=== PATIENT | female | born 1945 | race Caucasian/White ===

== ENCOUNTER 2022-06-22 15:15 | Outpatient (RCR) | payer MEDICARE, OTHER, SELFPAY | END 2022-11-11 23:59 | disposition home or self-care (01) | PROVIDERS: PCP Family Medicine; Visit Provider Family Medicine | DX: M25.561 Pain in right knee (principal); M62.81 Muscle weakness (generalized); M17.11 Unilateral primary osteoarthritis, right knee; M21.061 Valgus deformity, not elsewhere classified, right knee; Z51.89 Encounter for other specified aftercare | CPT/HCPCS: 97110; 97162 ==

== ENCOUNTER 2023-08-18 09:48 | Outpatient (CLI) | payer MEDICARE, OTHER, SELFPAY | END 2023-08-18 09:49 | disposition home or self-care (01) | LOC: NFLDREF 08-26 07:23 | PROVIDERS: PCP Family Medicine; Referring Provider Family Medicine; Visit Provider Physician Assistant | DX: N39.0 Urinary tract infection, site not specified (principal) | CPT/HCPCS: 87086; 87186 ==

== ENCOUNTER 2024-10-02 06:02 | Day surgery (SDC) | payer MEDICARE, OTHER, SELFPAY ==
[2024-10-02] VITALS (25 sets, daily range): BP systolic 90–167; BP diastolic 53–93; PULSE 55–79; RESP 14–20; TEMP 34.6–36.8; O2SAT 88–96; BMI 34.1
[2024-10-02] MEDS: CELECOXIB 200 MG CAPSULE PO (06:30)
[2024-10-02] MEDS: ACETAMINOPHEN 500 MG TABLET 1000 MG PO ×3 (06:30→19:18)
[2024-10-02] MEDS: OXYCODONE (CR) 10 MG TAB.ER.12H PO (06:30)
[2024-10-02] MEDS: LACTATED RINGERS 1000 ML 1,000 ML 100 ML IV ×2 (06:45→10:26)
[2024-10-02] MEDS: SODIUM CHLORIDE 0.9 % (FLUSH) 10 ML SYRINGE IVF (06:45)
[2024-10-02] MEDS: MIDAZOLAM HCL 1 MG/ML inj IVP (06:59)
[2024-10-02] MEDS: fentaNYL 100 MCG/2 ML inj IVP (06:59)
--- NOTE | 2024-10-02 07:03 | P.NB_ITS ---
Nerve Block Nerve Block Time Seen by Provider: 07:02 Date Seen: 10/02/24 Type of block requested by surgeon for post-operative analgesia: adductor canal Side: right Time out performed: Yes Verification of patient name: Yes Verification of date of : Yes Site marking: site marked Name of person performing procedure: Raman Continuous monitoring Was continuous monitoring of O2 sat, B/P, dynamite packing machine operator, recorded every 15 minutes?: Yes Procedure Checklist: sterile prep, needles and gloves Ultrasound guided. Images saved: Yes Medications given in 5ml increments after negative aspiration: Marcaine %: 0.25 mL: 15 Needle gauge: 20 Precedex (mcg): 25 Patient tolerated procedure well: Yes Block Charges Block Charge (with Pro Fee): Femoral Nerve Use of Ultrasound Machine for Block: Yes- US Guidance/pain block
--- NOTE | 2024-10-02 07:04 | P.NB_ITS ---
Nerve Block Nerve Block Time Seen by Provider: 07:02 Date Seen: 10/02/24 Type of block requested by surgeon for post-operative analgesia: geniculars Side: right Time out performed: Yes Verification of patient name: Yes Verification of date of : Yes Site marking: site marked Name of person performing procedure: Raman Continuous monitoring Was continuous monitoring of O2 sat, B/P, air sampling and monitoring, recorded every 15 minutes?: Yes Procedure Checklist: sterile prep, needles and gloves Ultrasound guided. Images saved: Yes Medications given in 5ml increments after negative aspiration: Marcaine %: 0.25 mL: 9 Needle gauge: 25 Patient tolerated procedure well: Yes Block Charges Block Charge (with Pro Fee): Genicular Nerve Block
--- NOTE | 2024-10-02 07:04 | P.ANES_ITS ---
Anesthesia Charges Start Date/Time Anesthesia Start Date: 10/02/24 Anesthesia Start Time: 07:20 Stop Date/Time Anesthesia Stop Date: 10/02/24 Anesthesia Stop Time: 10:02 Summary Extremes of Age - Over 70 or under 1: MDA Coding CPT Codes CPT Codes: ANESTH KNEE ARTHROPLASTY - 73062 ([id number]) P2 - PATIENT W/MILD SYST DISEASE, QK - IT APPLICATION DEVELOPMENT MANAGER 2-4 CNCRNT ANES PROC, QX - SEAMLESS TUBE MILL OPERATOR SVC W/ MD MED DIRECTION Additional Codes: Summary - Extremes of Age - Over 70 or under 1: MDA ([id number])
--- NOTE | 2024-10-02 07:04 | SUR.PREOP ---
TIME?OUT:?0658 PT/RN/MDA?VERIFICATION?OF?SURGICAL?SITE,?PROCEDURE,?AND?CONSENT OBTAINED?PRIOR?TO?INVASIVE?PROCEDURE.
--- NOTE | 2024-10-02 07:04 | W.ANESCHARGE ---
Anesthesia Charges Start Date/Time Anesthesia Start Date: 10/02/24 Anesthesia Start Time: 07:20 Stop Date/Time Anesthesia Stop Date: 10/02/24 Anesthesia Stop Time: 10:02 Summary Extremes of Age - Over 70 or under 1: MDA Coding CPT Codes CPT Codes: ANESTH KNEE ARTHROPLASTY - 59910 ([id number]) P2 - PATIENT W/MILD SYST DISEASE, QK - DIRECTOR OF CASEWORK SERVICES 2-4 CNCRNT ANES PROC, QX - ISSUER SVC W/ MD MED DIRECTION Additional Codes: Summary - Extremes of Age - Over 70 or under 1: MDA ([id number])
[2024-10-02] MEDS: CEFAZOLIN 1 GM inj IVP (07:25)
[2024-10-02] MEDS: TRANEXAMIC ACID 100 MG/ML INJ 1000 MG IV (07:30)
--- NOTE | 2024-10-02 09:03 | CRLHL7_ITS ---
For Patients: As a result of the Cures Act, medical imaging exams and procedure reports are released immediately into your electronic medical record. You may view this report before your referring provider. If you have questions, please contact your health care provider. Indication: post op TKA Technique: Two views right knee Findings/Impression: Hardware from a right total knee arthroplasty is in satisfactory position. Bone alignment is normal. No sign of acute fracture. Postop changes are within normal limits. Dictated by Josh Banks MD @ 10/02/2024 10:43:47 AM (Electronically Signed)
--- NOTE | 2024-10-02 09:04 | P.ORPRC_ITS ---
Procedure Note Date of procedure: 10/02/24 Procedure: PREOPERATIVE DIAGNOSIS: Right knee osteoarthritis POSTOPERATIVE DIAGNOSIS: Right knee osteoarthritis NAME OF OPERATION: Right total knee arthroplasty SURGEON: Carlos Denson MD DIRECTOR STATISTICAL PROGRAMMING: Aurea Moreno PA-C ANESTHESIA: Spinal ESTIMATED BLOOD LOSS: 0 mL COMPLICATIONS: None SPECIMENS: None DRAINS: None PREOPERATIVE ANTIBIOTICS: Ancef 2 grams, antibiotic impregnated cement IMPLANTS: 1. J[employer]J Attune revision CRS # 7 posterior stabilized femur, 14 mm x 50 mm cemented stem 2. Revision CRS # 7 fixed-bearing tibia, 14 mm x 50 mm cemented stem 3. # 7 posterior stabilized, 6 mm fixed-bearing, constrained polyethylene 4. 38 patella INDICATIONS: The patient is a 78-year-old with a longstanding history of severe, unrelenting right knee pain secondary to end-stage (grade IV) right knee osteoarthritis. Despite appropriate nonoperative management, including activity modification, anti-inflammatories, [id number] pain medication, bracing, physical therapy, and injections they continue to have pain and disability. Operative intervention was offered. The risks, benefits and expected outcomes were discussed in detail. These included but were not limited to: Infection, bleeding, injury to blood vessel or nerve, venous thromboembolism. All questions were answered to their satisfaction. Use of an licensed investment sales assistant was necessary throughout the case for patient positioning and safety, soft tissue retraction, and closure. A modifier 22 should be added to this case. Given the patient's valgus deformity and instability stemmed and constrained components were used. This added time and cost to complete the case. PROCEDURE: Spinal anesthesia was administered. The patient was placed supine on the operating table. The licensed investment sales assistant made sure the patient was positioned appropriately. The lower extremity was prepped and draped in the usual sterile fashion. The limb was exsanguinated with the Caelb bandage. The pneumatic tourniquet was inflated to 225 mmHg. A standard anterior incision was made with the knee in flexion. Subcutaneous dissection was sharply taken through fascial layer #1. Full-thickness medial and lateral flaps were elevated. The licensed investment sales assistant retracted the soft tissues and p rotected them throughout the case. A standard subvastus approach was made. The patella was subluxed. The infrapatellar fat pad was debrided. The menisci and cruciate ligaments were sharply d?brided. Marginal osteophytes were d?brided with the rongeur. The drill was used to penetrate the femoral canal. The canal was aspirated and irrigated with pulse lavage. The intramedullary femoral guide was placed for a 5-degree valgus cut, removing 12 mm off the distal femur. The saw was used to make the cut. Whitesides line and the trans epicondylar axis were marked. The femoral sizing guide was pinned onto the distal femur. Five degrees of external rotation nicely parallels the transepicondylar axis. Pins were placed for posterior referencing. The four-in-one cutting guide was pinned onto the distal femur. The anterior, posterior, and chamfer cuts were made. The licensed investment sales assistant protected the collateral ligaments. The revision trial was placed. The box cuts were made. The drill was used x2. The stemmed, boxed trial was placed and was an excellent fit. Attention was then turned to the proximal tibia. The intramedullary tibial guide was placed for a neutral varus/valgus cut with 3 degrees of posterior slope, removing 2 mm based off the medial tibial surface. The licensed investment sales assistant protected the collateral ligaments and the neurovascular bundle. The saw was used to make the cut. Trial components were placed. The knee was nicely balanced in both flexion and extension. The trial components were removed. The tray was placed in appropriate rotation, parallel to our tibial cutting pins. It was pinned by the licensed investment sales assistant and the drill x2 was used. The stemmed tibial trial was placed. The punch was used. The tray was removed. The punch was used again. Attention was then turned to the patella. [place] [employer] patellar thickness was 24.5 mm. The lobster claw resection guide was used with the 9.5 mm mimi. The saw was used to make the cut. Drill holes were made by the licensed investment sales assistant. The trial was placed and was an excellent fit. Cancellous surfaces were irrigated with pulse lavage and thoroughly dried by the licensed investment sales assistant. We cemented the tibial component, then the femoral component. We impacted the 6 mm polyethylene onto the tibial tray. The knee was brought into full extension. We then cemented the patellar component. Excessive cement was removed. The cement was allowed to harden. The knee was taken through a range of motion and was found to be nicely balanced in both flexion and extension. The patella tracks centrally. The licensed investment sales assistant did a three minute dilute Betadine solution soak. The licensed investment sales assistant irrigated the wound with 3 liters of normal saline via pulse lavage. The licensed investment sales assistant reapproximated the extensor mechanism with #1 Vicryl in an interrupted abylbe-qe-darur fashion. The licensed investment sales assistant then ran the extensor mechanism with a #1 PDO Stratafix. The licensed investment sales assistant closed the subcutaneous tissues with a 3-0 Stratafix and the skin with a running 3-0 Stratafix in a subcuticular fashion. Glue was used to seal the skin. The licensed investment sales assistant placed a dry dressing. Sponge and needle counts were correct x2. The patient tolerated the procedure well. There were no apparent complications. They were carefully transferred to the hospital bed and taken to the postanesthesia care unit in satisfactory condition. PLAN: The patient will be mobilized with physical therapy. Aspirin will be used for DVT prophylaxis. They will be discharged to home once medically appropriate.
--- NOTE | 2024-10-02 10:03 | P.ANES_ITS ---
Anesthesia Charges Start Date/Time Anesthesia Start Date: 10/02/24 Anesthesia Start Time: 07:20 Stop Date/Time Anesthesia Stop Date: 10/02/24 Anesthesia Stop Time: 10:02 Coding CPT Codes CPT Codes: ANESTH KNEE ARTHROPLASTY - 88704 ([id number]) P2 - PATIENT W/MILD SYST DISEASE, QK - DAY CARE ATTENDANT 2-4 CNCRNT ANES PROC, QX - RAILCAR CARPENTER SVC W/ MD MED DIRECTION
--- NOTE | 2024-10-02 10:03 | W.ANESCHARGE ---
Anesthesia Charges Start Date/Time Anesthesia Start Date: 10/02/24 Anesthesia Start Time: 07:20 Stop Date/Time Anesthesia Stop Date: 10/02/24 Anesthesia Stop Time: 10:02 Coding CPT Codes CPT Codes: ANESTH KNEE ARTHROPLASTY - 65486 ([id number]) P2 - PATIENT W/MILD SYST DISEASE, QK - DRYWALL STRIPPER 2-4 CNCRNT ANES PROC, QX - PARTS DELIVERY DRIVER SVC W/ MD MED DIRECTION
--- NOTE | 2024-10-02 10:38 | SUR.PHASEI ---
Patient meets discharge criteria from PACU.
[2024-10-02] MEDS: HYDROmorphone 0.5 mg/0.5 ml inj IVP (13:53)
[2024-10-02] MEDS: CEFAZOLIN 2 GM in 0.9 % SODIUM CHLORIDE Mini-bag 100 ML IVPB ×2 (13:53→21:19)
--- NOTE | 2024-10-02 15:23 | PC.NURSE ---
End of Shift: Patient pleasant and cooperative. VSS, afebrile. SpO2 maintained above 90% on 1L NC. Dressing to right knee C/D/I. Tolerating ice chips and crackers, denies nausea. Patient reported pain on right knee managed with PRN medication, see MAR. Up in the chair, call light within reach.
--- NOTE | 2024-10-02 16:31 | PM.IMCN1 ---
Date of Consult Patient: Gordon Patient Consult date: 10/02/24 Requesting Physician: Orthopedics Primary Care Provider: Makenna Keita MD Consult Narrative Reason for consult: HTN Narrative: Lor Coates is a 78 year old female with a h/o HTN, dysthymic disorder, and microcytic anemia who underwent an elective right total knee arthroplasty today by Dr. Denson. She is feeling well after surgery. She notes she is a nervous person and was really worried all day before the surgery, but since it all has gone so well and the surgery is now done, she feels good and happy. She also has no pain at this time, noting that she got some acetaminophen a while ago, which is working. We discussed box breathing and meditation as techniques she could use for anxiety. Review of Systems Status of ROS: Reports: 6 or more systems reviewed and unremarkable except as noted in History and below [facility] Medical History (Updated 10/02/24 @ 16:42 by Meghann De Dios MD) Anxiety ?F41.9 - Anxiety disorder, unspecified (ICD-10) Chronic pain of right knee ?M25.561 - Pain in right knee (ICD-10) ?G89.29 - Other chronic pain (ICD-10) Impaired fasting glucose ?R73.01 - Impaired fasting glucose (ICD-10) Hyperlipidemia ?E78.5 - Hyperlipidemia, unspecified (ICD-10) Depression ?F32.A - Depression, unspecified (ICD-10) Viral upper respiratory infection ?J06.9 - Acute upper respiratory infection, unspecified (ICD-10) Hypercholesterolemia ?E78.00 - Pure hypercholesterolemia, unspecified (ICD-10) Prediabetes ?R73.03 - Prediabetes (ICD-10) Right knee pain ?M25.561 - Pain in right knee (ICD-10) Dysthymic disorder ?F34.1 - Dysthymic disorder (ICD-10) Osteoarthritis ?M19.90 - Unspecified osteoarthritis, unspecified site (ICD-10) Microcytic anemia ?D50.9 - Iron deficiency anemia, unspecified (ICD-10) Colon polyp ?K63.5 - Polyp of colon (ICD-10) Vitamin D deficiency ?E55.9 - Vitamin D deficiency, unspecified (ICD-10) Unspecified essential hypertension ?I10 - Essential (primary) hypertension (ICD-10) Surgical History (Updated 10/02/24 @ 16:41 by Meghann De Dios MD) Status post total right knee replacement ?Z96.651 - Presence of right artificial knee joint (ICD-10) History of arthroplasty of right knee (10/02/24) ?Z96.651 - Presence of right artificial knee joint (ICD-10) H/O removal of cyst ?Z98.890 - Other specified postprocedural states (ICD-10) H/O dilation and curettage (1995) ?Z98.890 - Other specified postprocedural states (ICD-10) Social History (Updated 10/02/24 @ 16:38 by Meghann De Dios MD) Narrative: Denies tobacco or alcohol use. What is your current living situation?: I presently have a place to live Problems where you live: no known problems In the past 12 months, utilities in danger of being shut off: no In past 12 months, lack of transportation kept you from medical appts, meetings, work, or getting things needed for daily living: no In the past 12 mos, have been you worried that your food would run out before you had money to buy more?: never true In the past 12 mos, the food you bought just didn't last and you didn't have money to buy more?: never true Highest level of school completed/degree received: high school graduate Smoking Status: Never smoker Do you use any of these nicotine containing products: None Second hand tobacco smoke exposure: No How often do you have a drink containing alcohol: never How often do you have six or more drinks on one occasion: Never AUDIT-C Alcohol total score: 0 Non-prescribed substance use: denies use Caffeine: Yes How often does anyone, including family, friends and others, physically hurt you: never How often does anyone, including family, friends and others, insult or talk down to you: never How often does anyone, including family, friends and others, threaten you with harm: never How often does anyone, including family, friends and others, scream or curse at you: never service: No Meds Home Medications and Allergies Home Medications ?Medication ?Instructions ?Recorded ?Confirmed ?Type ferrous sulfate 325 mg (65 mg 325 mg PO DAILY 08/18/23 10/02/24 History iron) tablet,delayed release hydrochlorothiazide 25 mg tablet 25 mg PO DAILY 08/18/23 10/02/24 History paroxetine HCl 40 mg tablet 40 mg PO DAILY 08/18/23 10/02/24 History cholecalciferol (vitamin D3) 25 1,000 unit PO DAILY 09/28/24 10/02/24 History mcg (1,000 unit) capsule acetaminophen 500 mg tablet 500 mg PO Q6H PRN 10/02/24 10/02/24 History (Acetaminophen Extra Strength) aspirin 81 mg chewable tablet 81 mg PO BID for DVT prophylaxis 10/02/24 Rx (Aspirin Childrens) 30 days #60 tabs cyanocobalamin (vitamin B-12) 1,000 mcg PO DAILY 10/02/24 10/02/24 History 1,000 mcg tablet metformin 500 mg tablet,extended 500 mg PO DAILY 10/02/24 10/02/24 History release 24 hr oxycodone 5 mg tablet 2.5 - 5 mg (0.5 - 1 x 5 mg) PO 10/02/24 Rx Q4-6H PRN Pain #42 tabs rosuvastatin 10 mg tablet 10 mg PO HS 10/02/24 10/02/24 History sennosides 8.6 mg tablet (Senna 17.2 mg (2 x 8.6 mg) PO BID PRN 10/02/24 Rx Lax) constipation #100 tabs Allergies Allergy/AdvReac Type Severity Reaction Status Date / Time No Known Drug Allergies Allergy Verified 10/02/24 06:15 Exam Narrative: Exam Narrative: General: No acute distress. Awake alert oriented x3. Sitting comfortably in the bedside chair. HEENT: Normocephalic atraumatic, pupils equally round and reactive to light and accommodation. Oropharynx clear. Mucous membranes are moist. No cervical lymphadenopathy, thyromegaly or carotid bruits. No JVD. Cardiovascular: Regular rate and rhythm. No murmurs, gallops, or rubs. Chest: No increased work of breathing. Clear to auscultation bilaterally. No crackles or wheezes. Abdomen: Bowel sounds present. Soft, nondistended, nontender. No hepatosplenomegaly or masses. Extremities: Right knee bandage is clean, dry, and intact. No edema, no cyanosis or clubbing. Skin: No jaundice, no pallor, no rashes on visible skin. Const: Vital Signs, click to edit/add: Vital Signs - 24 hr 10/02/24 06:47 10/02/24 06:59 10/02/24 07:05 Temperature 97.4 F L Pulse Rate 65 65 57 L Respiratory Rate 16 16 16 Blood Pressure 164/92 H 167/88 H 135/79 Pulse Oximetry 95 96 95 Oxygen Delivery Me thod Room Air Nasal Cannula Nasal Cannula Oxygen Flow Rate 2 2 10/02/24 09:57 10/02/24 10:05 10/02/24 10:10 Temperature 97.3 F L Pulse Rate 59 L 59 L 58 L Respiratory Rate 16 14 14 Blood Pressure 157/84 H 128/65 115/93 H Pulse Oximetry 95 94 94 Oxygen Delivery Me thod Room Air Room Air Room Air Oxygen Flow Rate 10/02/24 10:15 10/02/24 10:20 10/02/24 10:25 Temperature Pulse Rate 58 L 57 L 57 L Respiratory Rate 14 14 14 Blood Pressure 118/78 133/63 132/60 Pulse Oximetry 93 95 95 Oxygen Delivery Me thod Room Air Room Air Oxygen Flow Rate 10/02/24 10:30 10/02/24 10:36 10/02/24 10:45 Temperature 97.3 F L 96.4 F L Pulse Rate 57 L 58 L 57 L Respiratory Rate 14 14 14 Blood Pressure 109/83 116/67 120/75 Pulse Oximetry 94 94 90 Oxygen Delivery Me thod Room Air Room Air Oxygen Flow Rate 10/02/24 10:45 10/02/24 11:00 10/02/24 11:15 Temperature 96.4 F L 96.5 F L 96.6 F L Pulse Rate 57 L 56 L 57 L Respiratory Rate 14 14 14 Blood Pressure 120/75 117/70 104/58 L Pulse Oximetry 90 92 93 Oxygen Delivery Me thod Room Air Nasal Cannula Nasal Cannula Oxygen Flow Rate 1 1 10/02/24 11:30 10/02/24 11:45 10/02/24 12:15 Temperature 96.6 F L 96.8 F L 97.1 F L Pulse Rate 55 L 57 L 57 L Respiratory Rate 14 14 14 Blood Pressure 102/56 L 113/59 L 106/56 L Pulse Oximetry 92 94 93 Oxygen Delivery Me thod Room Air Nasal Cannula Nasal Cannula Oxygen Flow Rate 1 1 10/02/24 12:45 10/02/24 14:00 10/02/24 15:00 Temperature 97.1 F L 97.5 F L 98.1 F Pulse Rate 60 66 63 Respiratory Rate 14 16 16 Blood Pressure 107/58 L 94/71 100/56 L Pulse Oximetry 94 90 93 Oxygen Delivery Me thod Nasal Cannula Nasal Cannula Nasal Cannula Oxygen Flow Rate 1 1 1 Assessment and Plan Assessment and plan (1) Status post total right knee replacement: Problem comment: - 10/02/24 Jarett - Routine post op cares - VTE prophylaxis with SCDs and aspirin 81 mg p.o. b.i.d. Status: Acute (2) Osteoarthritis of right knee: Status: Chronic (3) Anxiety: Problem comment: - Continue paxil - Meditation and box breathing as needed Status: Chronic (4) Unspecified essential hypertension: Problem comment: - BP borderline low postoperatively, asymptomatic, hold hydrochlorothiazide tomorrow morning Status: Chronic (5) Hyperlipidemia: Problem comment: Continue rosuvastatin Status: Chronic (6) Prediabetes: Problem comment: - restart metformin the morning Status: Chronic
[2024-10-02] MEDS: SENNOSIDES 1 TAB TABLET 2 TAB PO (21:19)
[2024-10-02] MEDS: ASPIRIN 81 MG TABLET EC PO (21:19)
[2024-10-02] MEDS: ROSUVASTATIN CALCIUM 10 MG TABLET PO (21:19)
[2024-10-02] MEDS: OXYCODONE 5 MG TABLET PO ×2 (21:23→23:17)
--- NOTE | 2024-10-02 22:51 | PC.NURSE ---
Arrived to patient?s room for initial assessment to find the patient sitting in her chair and in good spirits. Vitally she was still on post-op routine for three more hours and was initially hypotensive. This avril to an acceptable level for hour six. All benchmarks for post-op met. However she has not urinated this shift and has not expressed a need to do so. Further evaluation of fluid intake v retention needed. No discomfort in the abdomen. Ice pack kept in place over her right knee and replaced with new packs periodically. Surgical site covered with dry and intact dressing. Some slight swelling of the knee area but the skin is not tight or taught. Right pedal pulse, below the surgical site, is weak compared to left pulse. Patient educated on need to keep leg elevated and straight while seated but I would find her non-compliant with this on my many visits to her room, although accepting of us position them again in the proper position. I moved her once on my shift from her chair to the bed using a walker and belt. Uneasy on her feet. Pain of the right knee after this transfer. No knee immobilizer found in room. Verified with preceptor that none is needed. At end of shift the patient appeared to be in a good state of health and on her way to a successful and safe discharge from the hospital to home. ?
[2024-10-03] MEDS: ACETAMINOPHEN 500 MG TABLET 1000 MG PO ×2 (00:01→07:09)
[2024-10-03 03:20] VITALS: BP 108/62; PULSE 68; RESP 18; TEMP 36.7; O2SAT 95
--- NOTE | 2024-10-03 06:55 | PC.NURSE ---
Pt is alert and oriented x3. Afebrile. Pt reports 3/10 pain in right knee, pain managed with ice pack, PRN and scheduled medications. Pt?s right knee dressing is CDI. Pt is up SBA with walker and gait belt voiding, and tolerating a regular diet. Pt had one small BM. ?
[2024-10-03 07:00] VITALS: BP 102/58; PULSE 70; RESP 14; TEMP 36.6; O2SAT 92
[2024-10-03] MEDS: OXYCODONE 5 MG TABLET PO ×2 (07:10→09:31)
--- NOTE | 2024-10-03 08:07 | PM.ORPN ---
Subjective Subjective Time Seen by Provider: 07:45 Date Seen: 10/03/24 Principal diagnosis: Status post right knee replacement Interval history: Erika is comfortable. She will discharge today. Ortho Exam Narrative Exam Narrative: Alert and oriented x3. Patient is in no acute distress. Converses without labored breathing. Hearing is grossly intact. Ambulates with a walker. Examination of the right knee shows the dressing is intact. There is no erythema or warmth or sign of infection. Mild hematoma anterior knee. Mild edema. Bilateral calves are soft and nontender. She is able to straight leg raise. CMS is intact right lower extremity. Const Vital Signs, click to edit/add: Vital Signs - 24 hr 10/02/24 09:57 10/02/24 10:05 10/02/24 10:10 Temperature 97.3 F L Pulse Rate 59 L 59 L 58 L Pulse Rate [Right Pulse Oximeter] Respiratory Rate 16 14 14 Blood Pressure 157/84 H 128/65 115/93 H Blood Pressure [Left Arm] Pulse Oximetry 95 94 94 Oxygen Delivery Method Room Air Room Air Room Air Oxygen Flow Rate 10/02/24 10:15 10/02/24 10:20 10/02/24 10:25 Temperature Pulse Rate 58 L 57 L 57 L Pulse Rate [Right Pulse Oximeter] Respiratory Rate 14 14 14 Blood Pressure 118/78 133/63 132/60 Blood Pressure [Left Arm] Pulse Oximetry 93 95 95 Oxygen Delivery Method Room Air Room Air Oxygen Flow Rate 10/02/24 10:30 10/02/24 10:36 10/02/24 10:45 Temperature 97.3 F L 96.4 F L Pulse Rate 57 L 58 L 57 L Pulse Rate [Right Pulse Oximeter] Respiratory Rate 14 14 14 Blood Pressure 109/83 116/67 120/75 Blood Pressure [Left Arm] Pulse Oximetry 94 94 90 Oxygen Delivery Method Room Air Room Air Oxygen Flow Rate 10/02/24 10:45 10/02/24 11:00 10/02/24 11:15 Temperature 96.4 F L 96.5 F L 96.6 F L Pulse Rate 57 L 56 L 57 L Pulse Rate [Right Pulse Oximeter] Respiratory Rate 14 14 14 Blood Pressure 120/75 117/70 104/58 L Blood Pressure [Left Arm] Pulse Oximetry 90 92 93 Oxygen Delivery Method Room Air Nasal Cannula Nasal Cannula Oxygen Flow Rate 1 1 10/02/24 11:30 10/02/24 11:45 10/02/24 12:15 Temperature 96.6 F L 96.8 F L 97.1 F L Pulse Rate 55 L 57 L 57 L Pulse Rate [Right Pulse Oximeter] Respiratory Rate 14 14 14 Blood Pressure 102/56 L 113/59 L 106/56 L Blood Pressure [Left Arm] Pulse Oximetry 92 94 93 Oxygen Delivery Method Room Air Nasal Cannula Nasal Cannula Oxygen Flow Rate 1 1 10/02/24 12:45 10/02/24 14:00 10/02/24 15:00 Temperature 97.1 F L 97.5 F L 98.1 F Pulse Rate 60 66 63 Pulse Rate [Right Pulse Oximeter] Respiratory Rate 14 16 16 Blood Pressure 107/58 L 94/71 100/56 L Blood Pressure [Left Arm] Pulse Oximetry 94 90 93 Oxygen Delivery Method Nasal Cannula Nasal Cannula Nasal Cannula Oxygen Flow Rate 1 1 1 10/02/24 15:00 10/02/24 16:00 10/02/24 16:05 Temperature 97.8 F Pulse Rate 61 63 Pulse Rate [Right Pulse Oximeter] Respiratory Rate 16 Blood Pressure 90/53 L 99/61 Blood Pressure [Left Arm] Pulse Oximetry 93 93 93 Oxygen Delivery Method Nasal Cannula Nasal Cannula Nasal Cannula Oxygen Flow Rate 1 1 0.5 10/02/24 17:00 10/02/24 17:00 10/02/24 19:20 Temperature 94.3 F L 98.3 F Pulse Rate 68 Pulse Rate [Right Pulse Oximeter] 60 Respiratory Rate 16 16 Blood Pressure 115/83 Blood Pressure [Left Arm] 113/59 L Pulse Oximetry 93 93 91 Oxygen Delivery Method Nasal Cannula Room Air Room Air Oxygen Flow Rate 93 0 10/02/24 23:55 10/02/24 23:55 10/03/24 03:20 Temperature 98.2 F 98.1 F Pulse Rate Pulse Rate [Right Pulse Oximeter] 79 68 Respiratory Rate 20 20 18 Blood Pressure Blood Pressure [Left Arm] 115/70 108/62 Pulse Oximetry 88 88 95 Oxygen Delivery Method Room Air Room Air Room Air Oxygen Flow Rate Assessment and Plan Assessment and plan (1) Status post total right knee replacement: Problem details: - 10/02/24 Jarett - Routine post op cares - VTE prophylaxis with SCDs and aspirin 81 mg p.o. b.i.d. Status: Acute Assessment and Plan: Plan for discharge is today to home if they meet discharge criteria. DVT prophylaxis includes aspirin 81 mg twice daily x1 month, Compression stockings as needed for swelling. Frequent ambulation, every hour throughout the day. Remove dressing in 1 week. Observe wound and phone Orthopedics with any questions or concerns Return to clinic in 1 week for a wound check Return to clinic in 6 weeks with surgeon Minimize narcotic use. Wean off and discontinue soon as possible. Activities as tolerated. No strenuous activity. Outpatient physical therapy as scheduled. Ice and elevate the operative extremity. No restriction on ice.
[2024-10-03] MEDS: PARoxetine 20 MG TABLET 40 MG PO (09:27)
[2024-10-03] MEDS: SENNOSIDES 1 TAB TABLET 2 TAB PO (09:27)
[2024-10-03] MEDS: FERROUS SULFATE 325 MG TABLET PO (09:27)
[2024-10-03] MEDS: METFORMIN ER 500 MG PO (09:27)
[2024-10-03] MEDS: ASPIRIN 81 MG TABLET EC PO (09:31)
== END 2024-10-03 10:30 | disposition home or self-care (01) ==
LOC: OR 06:04 → MEDSURG 06:05
PROVIDERS: PCP Family Medicine; Visit Provider Orthopaedic Surgery
PROC: (CPT 27447; principal; 2024-10-02 07:15)
DX: M17.11 Unilateral primary osteoarthritis, right knee (principal); G89.18 Other acute postprocedural pain; I10 Essential (primary) hypertension; D50.9 Iron deficiency anemia, unspecified; R73.03 Prediabetes; F34.1 Dysthymic disorder; E55.9 Vitamin D deficiency, unspecified; Z79.82 Long term (current) use of aspirin; Z79.84 Long term (current) use of oral hypoglycemic drugs; E78.5 Hyperlipidemia, unspecified
CPT/HCPCS: 27447; 01402; 64447; 64454; 73560; 76942; 82962; 97110; 97116; 97162; 97165; 97530; 97535; 99100; A9270; C1776; J0665; J0690; J1171; J2250; J2371; J2405; J2704; J3010; J7120

== ENCOUNTER 2024-12-03 13:45 | Outpatient (RCR) | payer MEDICARE, BC, OTHER, SELFPAY ==
--- NOTE | 2024-10-08 12:51 | PT.OPE ---
[facility] Outpatient Eval PT [facility] Outpatient Eval Start: 10/05/24 10:00 Freq: Status: Active Protocol: Document 10/05/24 10:02 RONN (Rec: 10/05/24 10:07 RONN [id number]) E-signed By Cornelius Jefferson DPT, MS Physical Therapy Outpatient Evaluation Insurance Information Recert Due Date 01/03/25 Insurance Name Medicare B,Blue [employer] Shield Medical Diagnosis Unilateral primary osteoarthritis, right knee; presence of right artificial knee joint Treating Diagnosis R knee pain, decreased R LE flexibility and ROM, imbalance, gait dysfunction and R LE weakness. Subjective Preferred Name Erika Subjective Pt presents to PT following R TKA on 10/02/24 at [facility] with D/C to home with her children on 10/02/24. Doing well overall performing her HEP 2-3x per day with the assistance of homecare assistance her family hired. Lives alone in a single-story home with 1 small step to enter the home. Her adult aged children live in the area and are providing regular assistance. Chronic R knee pain prior to surgery with elevated pain over the past year. Stiffness and tightness with extended sitting chief complaints. Hopes to return to volunteering at her [employer] and [employer]. PMH includes R knee OA. AGGR factors: walking, standing, squatting, sleeping, knee bending, in<>out of cars and bed. ALLEV factors: ice, pain medication. Pain Comments 09/01 Date of Surgery (If 10/02/24 applicable) Current Work Status Retired Occupation Volunteers at local [employer] Precautions Weight Bearing Weight Bear as Tolerated Status Therapy Limitations/ Not Limited Systems Review Objective Functional Test LEFS: 6 Performed & Score Assessment Assessment/ Pt is doing well 2 days post-op with well managed pain Impression levels and a stable gait pattern with a FWW. ROM 0-5-93 deg. Moderate quality of quad sets with mod A required for SLR. Encouraged pt to move his R LE often to decrease stiffness and pain. Emphasized importance of passive knee ext stretching. Reviewed pt?s HEP with fatigue following. She will benefit from continued skilled therapy to address these limitations. Primary Functional Walking, standing, squatting, sleeping, knee bending, Limitations in<>out of cars and bed Plan of Care Rehabilitation Excellent Potential Physical Therapy Short-term goals to be completed in 4 weeks: Goals 1.Pt will display improved R LE strength as evidenced by ability to perform >12 SLR of good quality to improve quality of gait and progress to ambulation with single point cane. 2.Pt will report waking <3 times per night due to R knee pain to improve quality of sleep. Long-term goals to be completed in 10 weeks: 1.Pt will be independent and compliant with HEP 2. Pt will display improved R knee passive ROM > 0-0- 120 deg to improve quality of gait. 3.Pt will display improved R hip flex, hip ABD, quad and hamstring strength >4/5 to improve quality of gait without assistive device. 4. Pt will be able to amb >4 minutes without an AD with a stable gait pattern to safely perform volunteer work and shopping activities. 5.Pt report >75% improvement in LEFS questionnaire to significantly improve twila to daily activities. Coordination/ Referral Source Communication With Treatment Plan/ Joint Mobilization,Manual Therapy,Neuromuscular Re-ed, Direct Interventions Therapeutic Exercises Frequency/Duration 2x per week for 16-24 visits, decreasing frequency as able. Patient Will Be Completion of LTG(s),Skills Plateau,Independent w/HEP, Discharged From Independently Progressing Therapy Evaluation Billing Untimed Code 24 Treatment Minutes Complexity Moderate Certification Information Initial 10/05/24 Certification Date Ending Certification 01/03/25 Date Provider Signature Yes Required Provider Signature POC & Medical Necessity Shows Agreement With Physician NPI Number Write NPI# Here Physician Comment/ : Change Physician Signature Please Sign/Date Here & Date Requested
== END 2025-04-02 23:59 | disposition home or self-care (01) ==
PROVIDERS: PCP Family Medicine; Visit Provider Orthopaedic Surgery
DX: M17.11 Unilateral primary osteoarthritis, right knee (principal); Z96.651 Presence of right artificial knee joint; Z51.89 Encounter for other specified aftercare
CPT/HCPCS: 97110; 97116; 97140; 97162

== ENCOUNTER 2025-01-02 11:44 | Outpatient (CLI) | payer MEDICARE, BC, OTHER, SELFPAY | END 2025-01-02 11:45 | disposition home or self-care (01) | LOC: NFLDREF 01-07 14:35 | PROVIDERS: PCP Family Medicine; Referring Provider Family Medicine; Visit Provider Physician Assistant Surgical | DX: N30.00 Acute cystitis without hematuria (principal); R30.0 Dysuria; L29.9 Pruritus, unspecified; N30.01 Acute cystitis with hematuria | CPT/HCPCS: 87086; 87186 ==